=== PATIENT | female | born 1945 | race American Indian/Alaskan Native ===

== ENCOUNTER 2017-08-10 09:32 | Day surgery (SDC) | payer MEDICARE, OTHER ==
[~2017-08-10 09:32] MED LIST: Lactated Ringers 1,000 ML IV SCH
[2017-08-10] MEDS ORDERED: Propofol 200 MG/20 ML SDV ONE ×3 (10:17→12:37)
--- NOTE | 2017-08-10 10:59 | PCM.PREANE ---
Preanesthetic Assessment - Anesthesia/Transfusion/Family Hx Anesthesia History: Prior Anesthesia Without Reaction Other Type of Anesthesia Reaction Comment: states she "started to wake up while scope was being removed with last colo Family History of Anesthesia Reaction: No Transfusion History: No Prior Transfusion(s) - Review of Systems General: No Symptoms Pulmonary: Shortness of Breath Cardiovascular: Chest Pain Gastrointestinal: Hematochezia Other: Reports: None - Physical Assessment NPO Status Date: 08/09/17 NPO Status Time: 23:00 O2 Sat by Pulse Oximetry: 96 Respiratory Rate: 16 Vital Signs: Last Vital Signs Temp 36.1 C 08/10/17 09:53 Pulse 104 H 08/10/17 09:53 Resp 16 08/10/17 09:53 BP 108/72 08/10/17 09:53 Pulse Ox 96 08/10/17 09:53 Height: 1.65 m Weight: 70.307 kg ASA Class: 4 Mental Status: Alert & Oriented x3 Airway Class: Mallampati = 2 Dentition: Reports: Dentures ROM/Head Extension: Full Lungs: Clear to Auscultation, Normal Respiratory Effort - Allergies Allergies/Adverse Reactions: Allergies Allergy/AdvReac Type Severity Reaction Status Date / Time codeine Allergy Nausea and Verified 02/09/15 14:48 Vomiting diclofenac Allergy Stomach Verified 08/06/17 08:17 Upset duloxetine Allergy Stomach Verified 08/06/17 08:17 Upset - Acknowledgements Anesthesia Type Planned: MAC Pt an Appropriate Candidate for the Planned Anesthesia: Yes Alternatives and Risks of Anesthesia Discussed w Pt/Guardian: Yes Pt/Guardian Understands and Agrees with Anesthesia Plan: Yes Additional Comments: PMH: COPD, not on O2, CAD s/p ND in 2001, stents in 2009, takes aspirin daily last dose yesterday. limited exercise tolerance. 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: Musculoskeletal History: Reports: Fracture, Osteoarthritis Other Musculoskeletal History: fx left arm Neurological History: Reports: Seizure, Other (See Below) Other Neuro History: optical migraines, raunauds disease, last seizure approx 15 yrs ago Psychiatric History: Reports: Anxiety Endocrine/Metabolic History: Reports: Diabetes, Type II Other Endocrine/Metabolic History: diet controlled type II diabetes Hematologic History: Reports: Blood Transfusion(s) Dermatologic History: Reports: None - Past Surgical History Head Surgeries/Procedures: Reports: None HEENT Surgical History: Reports: Cataract Surgery Cardiovascular Surgical History: Reports: Coronary Artery Stent GI Surgical History: Reports: Appendectomy, Cholecystectomy, Colonoscopy Female Surgical History: Reports: Breast Biopsy, Hysterectomy, Kidney stone extraction, Oophorectomy Other Female Surgeries/Procedures: kidney surgery for kidney stone obstruction, laparotomy for tubal Musculoskeletal Surgical History: Reports: Shoulder Surgery Other Musculoskeletal Surgeries/Procedures:: rt shoulder for torn ligaments - SUBSTANCE USE Smoking Status *Q: Former Smoker Days Per Week of Alcohol Use: 0 Recreational Drug Use History: No - HOME MEDS Home Medications: Home Meds Albuterol [Proair HFA] 2 puff INH Q4H PRN 02/09/15 [History] Cyclobenzaprine [Flexeril] 1 tab PO ASDIRECTED PRN 02/09/15 [History] Metoprolol Succinate [Toprol XL] 25 mg PO DAILY 02/09/15 [History] levETIRAcetam [Levetiracetam ER] 500 mg PO DAILY 02/09/15 [History] Calcium Carbonate/Vitamin D3 [Calcium 600 + Vit D Tablet] 1 tab PO DAILY [History] Isosorbide Mononitrate [Isosorbide Mononitrate ER] 30 mg PO DAILY 08/06/17 [ History] LORazepam 0.5 mg PO BID PRN 08/06/17 [History] Magnesium Oxide [Magnesium] 400 mg PO DAILY 08/06/17 [History] NIFEdipine [Nifedipine ER] 30 mg PO DAILY 08/06/17 [History] Zolpidem Tartrate 5 mg PO BEDTIME PRN 08/06/17 [History] atorvaSTATin Calcium [Atorvastatin Calcium] 80 mg PO DAILY 08/06/17 [History] levETIRAcetam [Keppra] 250 mg PO BEDTIME 08/06/17 [History] traMADol HCl [Tramadol HCl] 50 mg PO ASDIRECTED PRN 08/06/17 [History] - CURRENT (IN HOUSE) MEDS Current Meds: Current Medications Lactated Ringer's (Ringers, Lactated) 1,000 mls @ 125 mls/hr IV ASDIRECTED BRANDIN Last Admin: 08/10/17 09:54 Dose: 125 mls/hr Discontinued Medications Lidocaine HCl (Xylocaine-Mpf 1%) Confirm Administered Dose 5 ml .ROUTE .STK-MED ONE Stop: 08/10/17 10:20 Propofol (Diprivan 20 Ml) Confirm Administered Dose 400 mg .ROUTE .STK-MED ONE Stop: 08/10/17 10:18
--- NOTE | 2017-08-10 12:53 | PCM.OPNOTE ---
- General Post-Op/Procedure Note Date of Surgery/Procedure: 08/10/17 Operative Procedure(s): Colonoscopy Pre Op Diagnosis: Hemoccult-positive stool. Personal history of colon polyps. Post-Op Diagnosis: Hemorrhoids Anesthesia Technique: MAC (ASA IV) Primary Surgeon: Eliecer Estes Piano Regulator Inspector: Niyah Perry Condition: Good Free Text/Narrative:: Dictation [id number] CPT CODE [id number]
[2017-08-10] MEDS ORDERED: Lactated Ringers 1,000 ML IV SCH (13:00)
--- NOTE | 2017-08-10 13:03 | PCM.POSTAN ---
POST ANESTHESIA ASSESSMENT - MENTAL STATUS Mental Status: Alert, Oriented - RESPIRATORY Respiratory Status: Respiratory Rate WNL, Airway Patent, O2 Saturation Stable - CARDIOVASCULAR CV Status: Pulse Rate WNL, Blood Pressure Stable - GASTROINTESTINAL GI Status: No Symptoms - POST OP HYDRATION Hydration Status: Adequate & Stable
--- NOTE | 2017-08-10 13:04 | PCM48HPAN ---
Post Anesthesia Note - EVALUATION WITHIN 48HRS OF ANESTHETIC Vital Signs in Normal Range: Yes Patient Participated in Evaluation: Yes Respiratory Function Stable: Yes Airway Patent: Yes Cardiovascular Function Stable: Yes Hydration Status Stable: Yes Pain Control Satisfactory: Yes Nausea and Vomiting Control Satisfactory: Yes Mental Status Recovered: Yes
[2017-08-10 13:21] VITALS: BP 129/66
--- NOTE | 2017-08-10 14:04 | OR ---
SURGEON: Eliecer Estes M.D. DATE OF PROCEDURE: 08/10/2017 OPERATION PERFORMED: Colonoscopy. ANESTHESIA: MAC. ASA CLASSIFICATION: IV. PREOPERATIVE DIAGNOSES: 1. Hemoccult positive stool. 2. History of colon polyps. POSTOPERATIVE DIAGNOSIS: Hemorrhoids. DESCRIPTION OF PROCEDURE: The patient was taken to the endoscopy room and positioned on the endoscopy table in the left lateral decubitus position. Time-out was called for appropriate identification of the patient and procedure. Monitored anesthesia care was provided. The colonoscope was inserted into the rectum and advanced with moderate difficulty to the cecum where the colonoscope was retroflexed to visualize the ascending colon from below. The colonoscope was then straightened and slowly withdrawn. Cecum, ascending colon, hepatic flexure, transverse colon, splenic flexure, descending colon, sigmoid colon, and rectum were well visualized. No tumors, polyps, or diverticular changes were noted. Specifically, no inflammatory changes or diverticulosis were noted in the descending colon or sigmoid colon. Once the colonoscope was withdrawn to the rectum, it was retroflexed to visualize the anal orifice from above. The patient does have chronic hemorrhoidal changes. No acute hemorrhoids are noted. No rectal polyps were identified. The colonoscope was then straightened, the rectum aspirated, and the colonoscope removed. The patient tolerated the procedure well and was taken to recovery room in stable condition. MOSES ORTIZ /[id number]
== END 2017-08-10 13:41 | disposition home or self-care (01) ==
LOC: MW.SDS 09:32
PROVIDERS: ATTEND Surgery
DX: K64.9 Unspecified hemorrhoids (principal); Z86.010 Personal history of colon polyps; J44.9 Chronic obstructive pulmonary disease, unspecified; K58.9 Irritable bowel syndrome, unspecified; G43.909 Migraine, unspecified, not intractable, without status migrainosus; I73.00 Raynaud's syndrome without gangrene; E11.9 Type 2 diabetes mellitus without complications; G40.909 Epilepsy, unspecified, not intractable, without status epilepticus; I25.10 Atherosclerotic heart disease of native coronary artery without angina pectoris; I25.2 Old myocardial infarction; E78.00 Pure hypercholesterolemia, unspecified; M19.90 Unspecified osteoarthritis, unspecified site; Z87.442 Personal history of urinary calculi; Z87.891 Personal history of nicotine dependence; Z88.5 Allergy status to narcotic agent; Z88.6 Allergy status to analgesic agent; Z88.8 Allergy status to other drugs, medicaments and biological substances; Z79.899 Other long term (current) drug therapy; Z90.49 Acquired absence of other specified parts of digestive tract; Z90.710 Acquired absence of both cervix and uterus; Z90.721 Acquired absence of ovaries, unilateral; Z98.890 Other specified postprocedural states
CPT/HCPCS: 45378; J7120; 00810; J2704

== ENCOUNTER 2022-05-16 15:52 | Emergency (ER) | payer MEDICARE, OTHER ==
[2022-05-16] MEDS ORDERED: Ondansetron 4 MG/2 ML SDV IVPUSH ONE (16:01)
[2022-05-16] MEDS ORDERED: Sodium Chloride 0.9% 2.5 ML Syringe FLUSH PRN (16:01)
[2022-05-16] MEDS ORDERED: Sodium Chloride 0.9% 10 ML Syringe FLUSH PRN (16:01)
[2022-05-16] MEDS ORDERED: Morphine 4 MG/ML VIAL IVPUSH ONE (16:03)
[2022-05-16] MEDS ORDERED: Famotidine 20 MG/2 ML SDV IVPUSH ONE (16:04)
[2022-05-16 16:52] LABS: CARBON DIOXIDE,CO2 28.6 mmol/L (21.0-32.0); POTASSIUM,K 4.4 mmol/L (3.5-5.1)
[2022-05-16] MEDS ORDERED: Iopamidol 755 MG/ML 500 ML Multipack Bottle IVPUSH ONE (18:06)
[2022-05-16 19:04] VITALS: BP 114/55; PULSE 82
== END 2022-05-16 19:02 | disposition home or self-care (01) ==
LOC: MW.ED 15:52
DX: K56.7 Ileus, unspecified (principal); E78.00 Pure hypercholesterolemia, unspecified; I10 Essential (primary) hypertension; I25.2 Old myocardial infarction; J44.9 Chronic obstructive pulmonary disease, unspecified; E11.9 Type 2 diabetes mellitus without complications; Z88.5 Allergy status to narcotic agent; Z88.8 Allergy status to other drugs, medicaments and biological substances; Z79.82 Long term (current) use of aspirin; Z79.899 Other long term (current) drug therapy
CPT/HCPCS: 36415; 74177; 80053; 81001; 83690; 85025; 96374; 96375; 99284; J2270; J2405; J3490; Q9967

== ENCOUNTER 2022-05-17 15:22 | Emergency (ER) | payer MEDICARE, OTHER ==
[2022-05-17] MEDS ORDERED: Sodium Chloride 0.9% 10 ML Syringe FLUSH PRN (15:44)
[2022-05-17] MEDS ORDERED: Sodium Chloride 0.9% 2.5 ML Syringe FLUSH PRN (15:44)
[2022-05-17] MEDS ORDERED: Sodium Chloride 0.9% 1,000 ML IV ONE (15:44)
[2022-05-17 16:20] LABS: CARBON DIOXIDE,CO2 30.1 mmol/L (21.0-32.0); POTASSIUM,K 4.6 mmol/L (3.5-5.1)
[2022-05-17 18:40] VITALS: BP 112/43; PULSE 72
== END 2022-05-17 18:40 | disposition home or self-care (01) ==
LOC: MW.ED 15:22
DX: K56.7 Ileus, unspecified (principal); K59.00 Constipation, unspecified; E11.9 Type 2 diabetes mellitus without complications; I10 Essential (primary) hypertension; E78.00 Pure hypercholesterolemia, unspecified; I25.2 Old myocardial infarction; Z88.5 Allergy status to narcotic agent; Z88.8 Allergy status to other drugs, medicaments and biological substances; Z79.82 Long term (current) use of aspirin; Z79.899 Other long term (current) drug therapy
CPT/HCPCS: 36415; 80053; 85025; 96360; 99283; J3490; J7030

== ENCOUNTER 2022-09-02 02:00 | Emergency (ER) | payer MEDICARE, OTHER | END 2022-09-02 17:30 | disposition home or self-care (01) | LOC: MW.ED 02:00 | DX: I95.1 Orthostatic hypotension (principal) | CPT/HCPCS: 71045; 71045-26; 99284 ==

== ENCOUNTER 2022-09-29 14:11 | Emergency (ER) | payer MEDICARE, OTHER ==
[2022-09-29] MEDS ORDERED: Sodium Chloride 0.9% 10 ML Syringe FLUSH PRN (14:28)
[2022-09-29] MEDS ORDERED: Sodium Chloride 0.9% 2.5 ML Syringe FLUSH PRN (14:28)
[2022-09-29 15:15] LABS: CARBON DIOXIDE,CO2 25.9 mmol/L (21.0-32.0)
[2022-09-29 17:42] VITALS: BP 135/61; PULSE 78
== END 2022-09-29 17:43 | disposition home or self-care (01) ==
LOC: MW.ED 14:11
DX: R55 Syncope and collapse (principal); E78.00 Pure hypercholesterolemia, unspecified; I10 Essential (primary) hypertension; E11.9 Type 2 diabetes mellitus without complications; Z88.5 Allergy status to narcotic agent; Z88.8 Allergy status to other drugs, medicaments and biological substances; Z79.899 Other long term (current) drug therapy; Z79.82 Long term (current) use of aspirin; Z90.49 Acquired absence of other specified parts of digestive tract
CPT/HCPCS: 36415; 71045; 80053; 83735; 84484; 85025; 93005; 99285; J3490

== ENCOUNTER 2025-01-22 10:16 | Emergency (ER) | payer MEDICARE, OTHER ==
[2025-01-22 11:08] VITALS: BP 132/90; PULSE 85
== END 2025-01-22 11:06 | disposition home or self-care (01) ==
LOC: MW.ED 10:16
DX: B02.9 Zoster without complications (principal); I25.2 Old myocardial infarction; I10 Essential (primary) hypertension; E78.00 Pure hypercholesterolemia, unspecified; J44.9 Chronic obstructive pulmonary disease, unspecified; M19.90 Unspecified osteoarthritis, unspecified site; E11.9 Type 2 diabetes mellitus without complications; Z90.49 Acquired absence of other specified parts of digestive tract; Z90.710 Acquired absence of both cervix and uterus; Z88.5 Allergy status to narcotic agent; Z88.8 Allergy status to other drugs, medicaments and biological substances; Z79.51 Long term (current) use of inhaled steroids; Z79.82 Long term (current) use of aspirin; Z79.899 Other long term (current) drug therapy; Z75.8 Other problems related to medical facilities and other health care
CPT/HCPCS: 99283

== ENCOUNTER 2025-07-21 09:21 | Day surgery (SDC) | payer MEDICARE, OTHER ==
[2025-07-21] MEDS ORDERED: Bupivacaine 0.5%/EPINEPHrine 1:200,000 30 ML SDV ONE (10:26)
[2025-07-21] MEDS ORDERED: Propofol 200 MG/20 ML SDV ONE ×2 (10:48)
[2025-07-21] MEDS: Lactated Ringers 1,000 ML IV SCH (11:07)
[2025-07-21 13:18] VITALS: BP 110/54; PULSE 82
== END 2025-07-21 13:35 | disposition home or self-care (01) ==
LOC: MW.SDS 09:21
PROVIDERS: ATTEND Surgery
DX: L90.0 Lichen sclerosus et atrophicus (principal); K57.30 Diverticulosis of large intestine without perforation or abscess without bleeding; K64.8 Other hemorrhoids; K64.4 Residual hemorrhoidal skin tags; K59.00 Constipation, unspecified; I25.10 Atherosclerotic heart disease of native coronary artery without angina pectoris; I10 Essential (primary) hypertension; E11.9 Type 2 diabetes mellitus without complications; Z88.5 Allergy status to narcotic agent; Z88.8 Allergy status to other drugs, medicaments and biological substances; Z79.82 Long term (current) use of aspirin; Z79.899 Other long term (current) drug therapy; Z87.891 Personal history of nicotine dependence
CPT/HCPCS: 11104; 45380; J2003; J2371; J2704; J7120; 00811; 88305; 88312; 99100; J0665